=== PATIENT | female | born 1950 | race Hispanic/Latino ===

== ENCOUNTER 2020-08-15 09:18 | Outpatient (CLI) | payer MEDICARE ==
--- NOTE | 2020-08-15 10:01 | XRay Report ---
ABDOMEN 1 VIEW INDICATION / CLINICAL INFORMATION: CALCULUS OF KIDNEY N20.0. COMPARISON: None available. FINDINGS: TUBES / LINES: None. BOWEL GAS PATTERN: No significant abnormality. FREE AIR / EXTRALUMINAL GAS: None seen. ADDITIONAL FINDINGS: There is a nonspecific 6 mm radiopaque density in the right pelvis, which could be along the course of the distal right ureter. IMPRESSION: 1. There is a nonspecific 6 mm radiopaque density in the right pelvis which could be along the course of the distal right ureter. Correlate for right flank pain, and if there is ongoing clinical concern , a CT renal colic could be performed for better assessment. Signer Name: Renee Reyes MD Signed: 08/15/2020 9:56 AM Workstation Name: [id number]
== END 2020-08-15 09:19 | disposition home or self-care (01) ==
LOC: SPVIMAG 09:18
PROVIDERS: ATTEND Urology
DX: N20.0 Calculus of kidney (principal)
CPT/HCPCS: 74018